=== PATIENT | male | born 1935 | race Caucasian/White ===

== ENCOUNTER 2017-07-13 13:06 | Emergency (ER) | payer MEDICARE, BC ==
--- NOTE | 2017-07-13 13:35 | ED PDOC ---
HPI: Back Time Seen by Provider: 07/13/17 13:23 Chief Complaint (Nursing): Back Pain Chief Complaint (Provider): Left lower back pain History Per: Patient History/Exam Limitations: no limitations Onset/Duration Of Symptoms: Days (3) Current Symptoms Are (Timing): Still Present Additional Complaint(s): Patient is an 82 y/o male with a past medical history of peptic ulcer disease presenting to the emergency department for left lower back and left hip pain x3 days with inability to ambulate secondary to pain. Reports receiving an injection three days ago with no improvement of symptoms. Denies weakness, paresthesia, or other complaints. PCP: Dr. Fernando Liu Past Medical History Reviewed: Historical Data, Nursing Documentation, Vital Signs Vital Signs: Last Vital Signs Temp 97.7 F 07/13/17 13:20 Pulse 99 H 07/13/17 13:20 Resp 16 07/13/17 13:20 BP 133/67 07/13/17 13:20 Pulse Ox 99 07/13/17 13:20 - Medical History PMH: Anemia, Diabetes (Insipidus), HTN Denies: HIV, Chronic Kidney Disease Other PMH: Peptic ulcer disease - Surgical History Surgical History: Endoscopy - Family History Family History: States: Unknown Family Hx - Social History Current smoker - smoking cessation education provided: No Ex-Smoker (has not smoked in the last 12 months): No Alcohol: None Drugs: Denies - Immunization History Hx Tetanus Toxoid Vaccination: No Hx Influenza Vaccination: No Hx Pneumococcal Vaccination: No - Home Medications Home Medications: Ambulatory Orders Medication Instructions Recorded Desmopressin [Ddavp] 0.1 mg PO BID 09/06/14 Methylprednisolone [Medrol Dose 4 mg PO DAILY #21 tab 07/13/17 Pack (21 tabs)] Zolpidem [Ambien] 10 mg PO HS 07/13/17 traMADol [Ultram] 50 mg PO Q8 #10 tab 07/13/17 - Allergies Allergies/Adverse Reactions: Allergies Allergy/AdvReac Type Severity Reaction Status Date / Time No Known Allergies Allergy Verified 09/06/14 07:53 Review of Systems ROS Statement: Except As Marked, All Systems Reviewed And Found Negative Constitutional: Negative for: Other (ability to ambulate) Musculoskeletal: Positive for: Back Pain (left lower back pain), Other (hip pain ) Neurological: Negative for: Weakness (or paresthesia) Physical Exam - Reviewed Nursing Documentation Reviewed: Yes Vital Signs Reviewed: Yes - Physical Exam Appears: Positive for: Well, Non-toxic, No Acute Distress Head Exam: Positive for: ATRAUMATIC, NORMAL INSPECTION, NORMOCEPHALIC Skin: Positive for: Normal Color, Warm, Dry Eye Exam: Positive for: Normal appearance Neck: Positive for: Normal, Painless ROM, Supple Cardiovascular/Chest: Positive for: Regular Rate, Rhythm. Negative for: Murmur Respiratory: Positive for: Normal Breath Sounds. Negative for: Accessory Muscle Use, Respiratory Distress Gastrointestinal/Abdominal: Positive for: Normal Exam, Soft. Negative for: Tenderness Back: Positive for: Other (left paraspinal tenderness). Negative for: Vertebral Tenderness Extremity: Positive for: Normal ROM. Negative for: Deformity Neurologic/Psych: Positive for: Oriented (x3). Negative for: Motor/Sensory Deficits Comments: Left hip tenderness - ECG O2 Sat by Pulse Oximetry: 99 (RA) Pulse Ox Interpretation: Normal - Progress Re-evaluation Time: 15:05 Condition: Improved Medical Decision Making Medical Decision Making: Time: 13:31 Initial impression: Left lower back pain and left hip pain Initial plan: Toradol Left Hip X-ray Lumber Spine X-ray Reevaluation 14:30 Left hip x-ray reviewed. L-spine x-ray reviewed. Scribe Attestation: Documented by Ita Farooq, acting as a scribe for Vazquez Agosto MD. Provider Scribe Attestation: All medical record entries made by the Scribe were at my direction and personally dictated by me. I have reviewed the chart and agree that the record accurately reflects my personal performance of the history, physical exam, medical decision making, and the department course for this patient. I have also personally directed, reviewed, and agree with the discharge instructions and disposition. Disposition - Clinical Impression Clinical Impression: Back pain, Osteoarthritis - Patient ED Disposition Is Patient to be Admitted: No Counseled Patient/Family Regarding: Studies Performed, Diagnosis, Need For Followup, Rx Given - Disposition Referrals: Rodney Ramey MD [Staff Provider] - Disposition: Routine/Home Disposition Time: 15:05 Condition: FAIR Prescriptions: Methylprednisolone [Medrol Dose Pack (21 tabs)] 4 mg PO DAILY #21 tab traMADol [Ultram] 50 mg PO Q8 #10 tab Instructions: Lumbar Radiculopathy (ED), Osteoarthritis (ED), Degenerative Disc Disease (ED) Forms: [email or web address] ([place]an) Print Language: ICELANDIC
[2017-07-13 15:46] VITALS: BP 128/76; PULSE 78; RESP 20; TEMP 97.6; O2SAT 98
--- NOTE | 2017-07-13 16:24 | RAD ---
PROCEDURE: Radiographs of the Lumbar Spine. HISTORY: trauma r/o fx COMPARISON: Comparison made with radiographs of the lumbar spine 01/09/[address] scan abdomen pelvis 07/27/2016 which also image the lumbar spine in 3 planes. FINDINGS: BONES: No evidence of acute compression fractures nor retropulsed fragments. Minor chronic anterior stature loss of the T12 segment unchanged. Remaining vertebral bodies otherwise exhibit normal stature. There is minimal levoscoliosis centered at the lower thoracic region. Vertebral bodies and facets otherwise exhibit normal alignment. . DISC SPACES: Significant multilevel degenerative spondylosis. Changes include varying degrees of disc space narrowing, endplate eburnation and large anterolateral as well as slightly smaller posterior osteophyte formation. Facets are hypertrophic L5-S1 through the L1-L2 levels in decreasing order of severity. OTHER FINDINGS: Vascular calcifications of the abdominal aorta and iliac arteries. IMPRESSION: No acute compression fractures no retropulsed fragments. Chronic anterior stature loss T12 segment unchanged. Significant multilevel degenerative spondylosis.
--- NOTE | 2017-07-13 16:38 | RAD ---
PROCEDURE: Pelvis left hip dated 07/13/2017 HISTORY: Pain. No trauma. COMPARISON: Comparison made with plain film radiographs of the pelvis 01/09/[address] scan abdomen pelvis 07/27/2016. FINDINGS: BONES: No definitive radiographic evidence of acute displaced fracture nor dislocation. Both femoral heads are appropriately located within the respective acetabula. JOINTS: Mild degenerative changes both hip joints with slight spurring of the superolateral margins of the acetabular roofs. SOFT TISSUES: Soft tissues appear grossly unremarkable. OTHER FINDINGS: None. IMPRESSION: No acute fracture seen. Mild DJD.
== END 2017-07-13 15:47 | disposition home or self-care (01) ==
LOC: H.ER 13:06
DX: M54.5 Low back pain (principal); E23.2 Diabetes insipidus; I10 Essential (primary) hypertension
CPT/HCPCS: 72110; 73502; 96372; 99283; J1885

== ENCOUNTER 2019-02-02 17:21 | Inpatient (IN) | payer MEDICARE, BC ==
[2019-02-02] MEDS ORDERED: Oxycodone/Acetaminophen 5/325 mg Tab PO STA (18:16)
[2019-02-02] MEDS ORDERED: Oxycodone/Acetaminophen 5/325 mg Tab ONE (18:21)
--- NOTE | 2019-02-02 18:27 | ED PDOC ---
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 Currently, he is just reporting having mid back pain which radiates down to his tailbone. He additionally reports that earlier this morning while sitting on his bed putting his socks on, he went to get up and fell forward on his knees also without any head injury or loss of consciousness. He says he is supposed to be using a cane, but was not using it during either fall. Patient states that he has been having this incoordination for about 2-3 weeks and does not know why, denying any associated dizziness, nausea, vomiting, and new pain to his legs. While he reports vision changes, he says this is not new and he is being seen for it by an ophthalm ologist and wears glasses. Of note, patient takes Endocet and MorphaBond (started last month) for his chronic back pain, but denies taking either medication yet today. PMD: Elvis Mclain Past Medical History Reviewed: Historical Data, Nursing Documentation, Vital Signs Vital Signs: Last Vital Signs Temp 98.6 F 02/02/19 17:23 Pulse 59 L 02/02/19 17:23 Resp 18 02/02/19 17:23 BP 143/75 02/02/19 17:23 Pulse Ox 99 02/02/19 17:23 - Medical History PMH: Anemia, Back Problems, Diabetes (Insipidus), HTN, Chronic Pain (back) Denies: HIV, Chronic Kidney Disease - Surgical History Surgical History: Endoscopy - Family History Family History: States: Unknown Family Hx - Social History Current smoker - smoking cessation education provided: No Alcohol: None Drugs: Denies - Immunization History Hx Tetanus Toxoid Vaccination: No Hx Influenza Vaccination: No Hx Pneumococcal Vaccination: No - Home Medications Home Medications: Ambulatory Orders Medication Instructions Recorded Desmopressin [Ddavp] 0.1 mg PO BID 09/06/14 Alprazolam [Xanax] 0.5 mg PO PRN PRN 02/02/19 Donepezil [Aricept] 10 mg PO DAILY 02/02/19 oxyCODONE/Acetaminophen [Percocet 1 tab PO PRN PRN 02/02/19 5/325 mg Tab] - Allergies Allergies/Adverse Reactions: Allergies Allergy/AdvReac Type Severity Reaction Status Date / Time No Known Allergies Allergy Verified 09/06/14 07:53 Review of Systems ROS Statement: Except As Marked, All Systems Reviewed And Found Negative Eyes: Positive for: Vision Change (but not new) Gastrointestinal: Negative for: Nausea, Vomiting Musculoskeletal: Positive for: Back Pain (mid back radiating down to tailbone) Neurological: Positive for: Incoordination. Negative for: Dizziness, Other (loss of consciousness) Physical Exam - Reviewed Nursing Documentation Reviewed: Yes (supraficial abrasions to mid back from fall) Vital Signs Reviewed: Yes - Physical Exam Appears: Positive for: No Acute Distress Head Exam: Positive for: ATRAUMATIC, NORMAL INSPECTION, NORMOCEPHALIC Skin: Positive for: Normal Color, Warm, Dry Eye Exam: Positive for: Normal appearance Neck: Positive for: Normal, Painless ROM, Supple Cardiovascular/Chest: Positive for: Regular Rate, Rhythm Respiratory: Positive for: Normal Breath Sounds. Negative for: Respiratory Distress Pulses-Dorsalis Pedis (L): 2+ Pulses-Dorsalis Pedis (R): 2+ Gastrointestinal/Abdominal: Positive for: Normal Exam, Soft. Negative for: Tenderness Back: Positive for: Other (point tenderness to mid thoracic and lumbar spine) Extremity: Positive for: Other (abrasion noted to right knee (from fall this morning as per pt); pelvis stable). Negative for: Tenderness (to entire bilateral lower extremities), Swelling (to entire bilateral lower extremities) Neurological/Psych: Positive for: Symmetric/Intact Strength (upper/lower extremities bilaterally) - Laboratory Results Result Diagrams: 02/02/19 18:29 02/02/19 20:59 - ECG O2 Sat by Pulse Oximetry: 99 (RA) Pulse Ox Interpretation: Normal Medical Decision Making Medical Decision Making: Time: 1814 Initial Impression: back pain s/p fall, incoordination Initial Plan: --CT head without contrast --CT lumbar spine w/o contrast --CT thoracic spine w/o contrast --CMP --CBC with differential --Magnesium levels --Percocet 1 tab PO --Accucheck --Reevaluation [address] Savage who agrees with plan. 1849 Accucheck: 86 2044 Lab called and notified someone in ED that blood specimen was hemolyzed and needed to be redrawn, but information was never relayed to BUDDY Tatum or myself until now. Upon reevaluation of patient, he has continued 8/10 pain. Morphine 4mg Iv ordered to be administered by RN. 2052 CT Lumbar Spine FINDINGS: ALIGNMENT: Bony alignment is anatomic. DISCS/DEGENERATIVE CHANGES: T12/L1: No significant central canal or neural foraminal stenosis. Bilateral mild apophyseal facet arthropathy noted. L1/L2: No significant central canal or neural foraminal stenosis. Bilateral moderate apophyseal facet arthropathy noted. L2/L3: No significant central canal or neural foraminal stenosis. Bilateral moderate apophyseal facet arthropathy. L3/4: There is marked central canal and bilateral neural foraminal stenosis. Bilateral hypertrophic apophyseal facet arthropathy. L4/5: There is marked central canal and bilateral neural foraminal stenosis. Bilateral hypertrophic apophyseal facet arthropathy. L5/S1: No significant central canal or neural foraminal stenosis. Bilateral hypertrophic apophyseal facet arthropathy. BONES: No acute fracture or aggressive appearing osseous lesion. In the central superio r endplate of L5, there is identified an extrinsic compression defect thought compatible with Schmorl's node herniation. Extensive osteophytic spurring/bridging is present throughout the lumbar spine. There is evidence of advanced degenerative disc disease at L2-3 and L3-4. SOFT TISSUES: The soft tissues are unremarkable. MISCELLANEOUS: Moderate atherosclerotic vascular plaquing is present. IMPRESSION: 1. No acute lumbar spine abnormality. 2. Bilateral apophyseal facet arthropathy at all levels which is hypertrophic at L3-4, L4-5, L5-S1. 3. Marked central spinal canal stenosis and bilateral neural foramen stenosis at L3-4 and L4-5. 4. Evidence of advanced degenerative disc disease at L2-3 and L3-4. 5. 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 2113 CT Thoracic Spine FINDINGS: BONES: No acute fracture or aggressive appearing osseous lesion. Multilevel degenerative disc disease is seen in the mid-lower cervical spine. Ankylosing spondylitis is noted throughout the thoracic spine. ALIGNMENT: The coronal reconstructed images demonstrate mild dextroscoliotic curvature with the apex at T5. DEGENERATIVE CHANGES: No significant central canal or neural foraminal stenosis. SOFT TISSUES: The soft tissues are unremarkable. IMPRESSION: 1. No acute thoracic spine abnormality. 2. Multilevel degenerative disc disease noted in the mid-to lower cervical spine. 3. Ankylosing spondylitis throughout the thoracic spine. 4. Slight dextroscoliotic curvature of the thoracic spine. [address] Jovel and states that patient is be admitted for multiple falls and intractable back pain. Admitting bridge orders entered and case discussed with Dr. Savage who is agreeable with plan and treatment. Patient is to be moved to a room in the main for obs/tele. -- Scribe Attestation: Documented by Montserrat Arnett, acting as a scribe for Claudia Noel NP. Provider Scribe Attestation: All medical record entries made by the Scribe were at my direction and personally dictated by me. I have reviewed the chart and agree that the record accurately reflects my personal performance of the history, physical exam, medical decision making, and the department course for this patient. I have also personally directed, reviewed, and agree with the discharge instructions and disposition. Disposition - Clinical Impression Clinical Impression: Intractable back pain, Multiple falls - Patient ED Disposition Is Patient to be Admitted: No - Disposition Disposition Time: 22:00 Condition: STABLE - Pt Status Changed To: Hospital Disposition Of: Observation - POA Present On Arrival: Falls Or Trauma
[2019-02-02 18:45] LABS: BASO % 0.7 % (0.0-2.0); EOS # 0.1 K/uL (0.0-0.7); EOS % 1.1 % (0.0-4.0); HEMOGLOBIN 13.9 g/dL (12.0-18.0); LYMPH # 0.9 K/uL (1.0-4.3); LYMPH % 14.1 % (20.0-40.0); MEAN CELL VOLUME 89.6 fl (80.0-94.0); MEAN CORPUSCULAR HEMOGLOBIN 30.5 pg (27.0-31.0); MEAN CORPUSCULAR HGB CONC 34.1 g/dL (33.0-37.0); MEAN PLATELET VOLUME 7.8 fl (7.2-11.7); MONO # 0.6 K/uL (0.0-0.8); MONO % 9.5 % (0.0-10.0); NEUT # 4.6 K/uL (1.8-7.0); NEUT % 74.6 % (50.0-75.0); NRBC % 0.1 % (0.0-0.0); RBC 4.54 Mil/uL (4.40-5.90); RED CELL DISTRIBUTION WIDTH 12.9 % (11.5-14.5); WHITE BLOOD COUNT 6.2 K/uL (4.8-10.8)
[2019-02-02] MEDS ORDERED: Morphine 5 MG/ML SYRINGE IM STA (20:41)
[2019-02-02] MEDS ORDERED: Morphine 4 MG/ML VIAL ONE (20:57)
[2019-02-02 21:18] LABS: BLOOD UREA NITROGEN 12 mg/dl (9-20); CALCIUM 8.8 mg/dL (8.4-10.2); GFR NON-AFRICAN AMERICAN > 60
[2019-02-02 21:19] LABS: ALB/GLOB RATIO 1.2 (1.0-2.1); ALBUMIN 3.9 g/dL (3.5-5.0); ALT/SGPT 27 U/L (21-72); AST/SGOT 41 U/L (17-59)
[2019-02-02] MEDS ORDERED: Oxycodone/Acetaminophen 5/325 mg Tab PO PRN (21:55)
[2019-02-02] MEDS ORDERED: HYDROmorphone 1 mg/ml ISec IVP PRN (23:49)
[2019-02-03] MEDS: DESMOPRESSIN 0.1 MG PO SCH ×3 (00:25→21:40)
--- NOTE | 2019-02-03 08:22 | CARD ---
APPROVED REPORT Date of service: 02/02/2019 EKG Measurement Heart [id number] <Conclusion> Normal sinus rhythm with sinus arrhythmia Voltage criteria for left ventricular hypertrophy Abnormal ECG
--- NOTE | 2019-02-03 08:28 | CT ---
Date of service: 02/02/2019 PROCEDURE: CT HEAD WITHOUT CONTRAST. HISTORY: frequent falls COMPARISON: 07/27/2016 TECHNIQUE: Axial computed tomography images were obtained through the head/brain without intravenous contrast. Radiation dose: Total exam DLP = 1291.91 mGy-cm. This CT exam was performed using one or more of the following dose reduction techniques: Automated exposure control, adjustment of the mA and/or kV according to patient size, and/or use of iterative reconstruction technique. FINDINGS: HEMORRHAGE: No intracranial hemorrhage. BRAIN: No mass effect or edema. Cerebral atrophy and bilateral periventricular and deep white matter hypodensities compatible with microvascular ischemic changes-findings are stable in appearance VENTRICLES: Bilateral prominence commensurate with the degree of atrophy. CALVARIUM: Unremarkable. PARANASAL SINUSES: Prior paranasal sinus inflammatory changes have progressed ethmoid and sphenoid sinuses most notably affected. MASTOID AIR CELLS: Unremarkable as visualized. No inflammatory changes. OTHER FINDINGS: None. IMPRESSION: Cerebral atrophy and microvascular ischemic changes stable since 2016. No interval hemorrhage or mass effect no intracerebral or extra axial interval pathology noted. Interval progressive sinusitis-ethmoid and sphenoid sinuses most notably now affected. Concordant results (preliminary interpretation) provided by [facility].
[2019-02-03 11:07] LABS: BLOOD UREA NITROGEN 12 mg/dl (9-20); CALCIUM 8.9 mg/dL (8.4-10.2); GFR NON-AFRICAN AMERICAN > 60
[2019-02-03] MEDS: Oxycodone/Acetaminophen 5/325 mg Tab PO PRN ×2 (11:27→19:32)
--- NOTE | 2019-02-03 12:49 | CT ---
Date of service: 02/02/2019 PROCEDURE: CT Thoracic Spine without contrast HISTORY: fall COMPARISON: None available TECHNIQUE: Axial computed tomography images were obtained of the thoracic spine without intravenous contrast. Coronal and sagittal reformatted images were created and reviewed. Radiation dose: Total exam DLP = 869.87 mGy-cm. This CT exam was performed using one or more of the following dose reduction techniques: Automated exposure control, adjustment of the mA and/or kV according to patient size, and/or use of iterative reconstruction technique. 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 There is scarring of the thoracic vertebral bodies. There is heterogeneous extensive demineralization. There is a minimally displaced fracture through the T12 vertebral body, somewhat obliquely. The posterior elements appear intact. This creates a pseudoarticulation at the T12 level.. There is no other fracture identified. The heights of the vertebral bodies are maintained. Normal alignment is maintained. DISCS/SPINAL CANAL/NEURAL FORAMINA: There is narrowing of multiple intervertebral disc spaces of the lower thoracic spine consistent with degenerative disc disease.. PARASPINAL SOFT TISSUES: There is mild paraspinous hemorrhage noted about the T12 vertebra. There is no evidence of epidural hematoma.. OTHER FINDINGS: Unremarkable. IMPRESSION: Findings suggestive of ankylosing spondylitis with oblique fracture through the T12 vertebra resulting in a pseudoarticulation. The fracture is acute to subacute with some paraspinous hemorrhage. No other fracture identified. Posterior elements are intact at the T12 level. The preliminary findings for this examination were reported by [facility] at 9:14 p.m. on 02/02/2019. There is discordance of this report with the preliminary findings. T12 vertebral body fracture was not described in the preliminary report of this examination. These findings were described by telephone to the emergency physician, , at 12:15 p.m. on 02/03/2019.
--- NOTE | 2019-02-03 13:42 | CT ---
Date of service: 02/02/2019 PROCEDURE: CT Lumbar Spine without contrast HISTORY: fall COMPARISON: None available. TECHNIQUE: Axial computed tomography images were obtained of the lumbar spine without the use of intravenous contrast. Coronal and sagittal reformatted images were created and reviewed. Radiation dose: Total exam DLP = 1193.39 mGy-cm. This CT exam was performed using one or more of the following dose reduction techniques: Automated exposure control, adjustment of the mA and/or kV according to patient size, and/or use of iterative reconstruction technique. FINDINGS: VERTEBRAE: There is an oblique fracture through the T12 vertebral body. See the report of thoracic spine of the same date. The heights of the lumbar vertebral bodies are maintained. There is a Schmorl's node in the superior L5 vertebral endplate. There is grade 1 retrolisthesis at L2-3. Normal alignment is maintained elsewhere. There is diffuse demineralization. DISCS/SPINAL CANAL/NEURAL FORAMINA: L1-2: Unremarkable. L2-3: Loss in height of the intervertebral disc space. Osteophytes are seen about the disc space posteriorly. There is bilateral facet hypertrophy and ligamentum flavum hypertrophy. There is mild central spinal stenosis. L3-4: There is loss in height of the intervertebral disc space. There is severe bilateral facet hypertrophy resulting in severe central spinal stenosis. There is moderate to severe bilateral neural foraminal stenosis. L4-5: There is loss in height of the intervertebral disc space with posterior osteophytes. There is extensive degenerative facet hypertrophy. There is severe central spinal stenosis. There is severe bilateral neural foraminal stenosis. L5-S1: There is preservation in height of the intervertebral disc space. There is mild degenerative facet arthropathy and ligamentum flavum hypertrophy. Mild central spinal stenosis. PARASPINAL SOFT TISSUES: There is paraspinous hemorrhage noted anteriorly at the T12 vertebral level. There is no evidence of epidural hematoma. OTHER FINDINGS: None. IMPRESSION: Fracture of T12 vertebral body. See report of thoracic spine CT of the same date. 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 No lumbar spinous fracture appreciated. The preliminary findings for this examination were reported by [facility] at 8:53 p.m. on 02/02/2019. There is concurrence of this report with the preliminary findings.
--- NOTE | 2019-02-03 14:44 | CP.PCM.CON ---
History of Present Illness - History of Present Illness History of Present Illness: Neurosurgery consult: Dr. Tim CARROLL interpreton #[id number] used Patient is an 83 y/o male who is admitted following a fall, no c/o mid back pain. The patient reoorts falling onto his back while trying to open his car door yesterday. He experienced severe mid back pain at the time and was brought to [facility] for evaluation. It was determined that the patient had suffered a T12 vertebral body fracture on CT. The patient has had chronic LB pain for many years with LLE radiating pain and paresthesias. As a result, he has had multi ple falls in the past. He reports that 9 years ago, he suffered a fall and was taken to [facility] where he describes lumbar spine spine surgery was performed, however, he can not provide details of the surgery. Currently, his pain is dull, intermittent and located at his mid back. The pain is worse with walking, and prolonged sitting. The pain is alleviated with lying down. He admits to worsened LLE radiating pain and paresthesias. He denies bowel/bladder dysfunction and saddle paresthesias. He denies CP/SOB/N/V/D/fever/melena/dysuria. PMH: Diabetis insipidus PSH: lumbar surgery meds: as per med rec allergy NKDA SH: denies tobacco/ETOH/drug use Review of Systems - Review of Systems All systems: reviewed and no additional remarkable complaints except Review of Systems: as per HPI Past Patient History - Infectious Disease Hx of Infectious Diseases: None - Tetanus Immunizations Tetanus Immunization: Unknown - Past Medical History & Family History Past Medical History?: Yes Past Family History: Reviewed and not pertinent - Past Social History Alcohol: None Drugs: Denies - CARDIAC Hx Hypertension: Yes - PULMONARY Hx Respiratory Disorders: No - NEUROLOGICAL Hx Neurological Disorder: No - HEENT Hx HEENT Problems: Yes Hx Cataracts: Yes (bilateral) - RENAL Hx Chronic Kidney Disease: No - ENDOCRINE/METABOLIC Hx Endocrine Disorders: Yes Hx Diabetes Insipidus: Yes - HEMATOLOGICAL/ONCOLOGICAL Hx Anemia: Yes Hx Human Immunodeficiency Virus (HIV): No - INTEGUMENTARY Hx Dermatological Problems: No - MUSCULOSKELETAL/RHEUMATOLOGICAL Hx Musculoskeletal Disorders: Yes Hx Back Pain: Yes Hx Falls: Yes Hx Herniated Disk: Yes - GASTROINTESTINAL Hx Gastrointestinal Disorders: Yes Hx Ulcer: Yes - GENITOURINARY/GYNECOLOGICAL Hx Genitourinary Disorders: No - PSYCHIATRIC Hx Psychophysiologic Disorder: Yes Hx Anxiety: Yes Hx Substance Use: No - SURGICAL HISTORY Hx Surgeries: Yes Hx Cataract Extraction: Yes - ANESTHESIA Hx Anesthesia: Yes Hx Anesthesia Reactions: No Hx Malignant Hyperthermia: No Meds Allergies/Adverse Reactions: Allergies Allergy/AdvReac Type Severity Reaction Status Date / Time No Known Allergies Allergy Verified 09/06/14 07:53 - Medications Medications: Current Medications Alprazolam (Xanax) 0.5 mg PO BID PRN PRN Reason: Anxiety Last Admin: 02/03/19 00:25 Dose: 0.5 mg Donepezil HCl (Aricept) 10 mg PO DAILY [facility] Last Admin: 02/03/19 09:21 Dose: 10 mg Enoxaparin Sodium (Lovenox) 40 mg SC DAILY [facility]; Protocol Home Med (Desmopressin [Ddavp]) 0.1 mg PO Q12 [facility] Last Admin: 02/03/19 09:21 Dose: 0.1 mg Hydromorphone HCl (Dilaudid) 1 mg IVP Q4 PRN PRN Reason: Pain, severe (8-10) Oxycodone/Acetaminophen (Percocet 5/325 Mg Tab) 1 tab PO Q4 PRN PRN Reason: Pain, moderate (4-7) Stop: 02/06/19 01:01 Last Admin: 02/03/19 11:27 Dose: 1 tab Physical Exam - Constitutional Appears: Well, No Acute Distress - Head Exam Head Exam: ATRAUMATIC, NORMOCEPHALIC - Eye Exam Eye Exam: EOMI, Normal appearance - ENT Exam ENT Exam: Mucous Membranes Moist - Neck Exam Neck exam: Positive for: Normal Inspection - Respiratory Exam Respiratory Exam: NORMAL BREATHING PATTERN - Back Exam Additional comments: Midline tenderness from T12 to L5 diffuse lumbar paraspinal tenderness bilaterally old midline lumbar scar well healed no masses/erythema sensation intact SP/DP/TN motor intact EHL/FHL/TA/G + SLR LLE neg clonus - Neurological Exam Neurological exam: Alert, CN II-XII Intact, Oriented x3 - Psychiatric Exam Psychiatric exam: Normal Affect, Normal Mood - Skin Skin Exam: Normal Color, Warm Results - Vital Signs Recent Vital Signs: Last Vital Signs Temp 98.2 F 02/03/19 11:43 Pulse 68 02/03/19 11:43 Resp 18 02/03/19 11:43 BP 113/69 02/03/19 11:43 Pulse Ox 95 02/03/19 11:43 - Labs Result Diagrams: 02/02/19 18:29 02/03/19 09:45 Labs: Laboratory Results - last 24 hr 02/02/19 02/02/19 02/02/19 18:29 18:49 20:59 WBC 6.2 RBC 4.54 Hgb 13.9 Hct 40.7 MCV 89.6 D MCH 30.5 MCHC 34.1 RDW 12.9 Plt Count 167 MPV 7.8 Neut % (Auto) 74.6 Lymph % (Auto) 14.1 L [place] % (Auto) 9.5 Eos % (Auto) 1.1 Baso % (Auto) 0.7 Neut # (Auto) 4.6 Lymph # (Auto) 0.9 L [place] # (Auto) 0.6 Eos # (Auto) 0.1 Baso # (Auto) 0.0 Sodium 131 L Potassium 4.3 Chloride 96 L Carbon Dioxide 25 Anion Gap 14 BUN 12 Creatinine 0.7 L Est GFR ( Amer) > 60 Est GFR (Non-Af Amer) > 60 POC Glucose (mg/dL) 86 Random Glucose 100 Calcium 8.8 Total Bilirubin 1.1 AST 41 ALT 27 Alkaline Phosphatase 130 H Troponin I Total Protein 7.2 Albumin 3.9 Globulin 3.3 Albumin/Globulin Ratio 1.2 02/02/19 02/03/19 20:59 09:45 WBC RBC Hgb Hct MCV MCH MCHC RDW Plt Count MPV Neut % (Auto) Lymph % (Auto) [place] % (Auto) Eos % (Auto) Baso % (Auto) Neut # (Auto) Lymph # (Auto) [place] # (Auto) Eos # (Auto) Baso # (Auto) Sodium 130 L Potassium 4.0 Chloride 95 L Carbon Dioxide 24 Anion Gap 15 BUN 12 Creatinine 0.6 L Est GFR ( Amer) > 60 Est GFR (Non-Af Amer) > 60 POC Glucose (mg/dL) Random Glucose 131 H Calcium 8.9 Total Bilirubin AST ALT Alkaline Phosphatase Troponin I 0.0150 Total Protein Albumin Globulin Albumin/Globulin Ratio - Impressions Impression: Accession No. : [id number] Patient Name / ID : PARDEEP Cristobal / [id number] Exam Date : 02/02/2019 19:21:57 ( Approved ) Study Comment : Sex / Age : M / 83Y Creator : tameka love Dictator : Jasper Fernandez MD Milk Hauler : Load Checker : Jasper Fernandez MD Approver2 : Report Date : 02/02/2019 21:27:07 My Comment : Date of service: 02/02/2019 PROCEDURE: CT Thoracic Spine without contrast HISTORY: fall COMPARISON: None available TECHNIQUE: Axial computed tomography images were obtained of the thoracic spine without intravenous contrast. Coronal and sagittal reformatted images were created and reviewed. Radiation dose: Total exam DLP = 869.87 mGy-cm. This CT exam was performed using one or more of the following dose reduction techniques: Automated exposure control, adjustment of the mA and/or kV according to patient size, and/or use of iterative reconstruction technique. 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 There is scarring of the thoracic vertebral bodies. There is heterogeneous extensive demineralization. There is a minimally displaced fracture through the T12 vertebral body, somewhat obliquely. The posterior elements appear intact. This creates a pseudoarticulation at the T12 level.. There is no other fracture identified. The heights of the vertebral bodies are maintained. Normal alignment is maintained. DISCS/SPINAL CANAL/NEURAL FORAMINA: There is narrowing of multiple intervertebral disc spaces of the lower thoracic spine consistent with degenerative disc disease.. PARASPINAL SOFT TISSUES: There is mild paraspinous hemorrhage noted about the T12 vertebra. There is no evidence of epidural hematoma.. OTHER FINDINGS: Unremarkable. IMPRESSION: Findings suggestive of ankylosing spondylitis with oblique fracture through the T12 vertebra resulting in a pseudoarticulation. The fracture is acute to subacute with some paraspinous hemorrhage. No other fracture identified. Posterior elements are intact at the T12 level. The preliminary findings for this examination were reported by [facility] at 9:14 p.m. on 02/02/2019. There is discordance of this report with the preliminary findings. T12 vertebral body fracture was not described in the preliminary report of this examination. These findings were described by telephone to the emergency physician, , at 12:15 p.m. on 02/03/2019. Accession No. : [id number] Patient Name / ID : PARDEEP Cristobal / [id number] Exam Date : 02/02/2019 19:25:38 ( Approved ) Study Comment : Sex / Age : M / 83Y Creator : tameka love Dictator : Jasper Fernandez MD Milk Hauler : Load Checker : Jasper Fernandez MD Approver2 : Report Date : 02/02/2019 21:27:07 My Comment : Date of service: 02/02/2019 PROCEDURE: CT Lumbar Spine without contrast HISTORY: fall COMPARISON: None available. TECHNIQUE: Axial computed tomography images were obtained of the lumbar spine without the use of intravenous contrast. Coronal and sagittal reformatted images were created and reviewed. Radiation dose: Total exam DLP = 1193.39 mGy-cm. This CT exam was performed using one or more of the following dose reduction techniques: Automated exposure control, adjustment of the mA and/or kV according to patient size, and/or use of iterative reconstruction technique. FINDINGS: VERTEBRAE: There is an oblique fracture through the T12 vertebral body. See the report of thoracic spine of the same date. The heights of the lumbar vertebral bodies are maintained. There is a Schmorl's node in the superior L5 vertebral endplate. There is grade 1 retrolisthesis at L2-3. Normal alignment is maintained elsewhere. There is diffuse demineralization. DISCS/SPINAL CANAL/NEURAL FORAMINA: L1-2: Unremarkable. L2-3: Loss in height of the intervertebral disc space. Osteophytes are seen about the disc space posteriorly. There is bilateral facet hypertrophy and ligamentum flavum hypertrophy. There is mild central spinal stenosis. L3-4: There is loss in height of the intervertebral disc space. There is severe bilateral facet hypertrophy resulting in severe central spinal stenosis. There is moderate to severe bilateral neural foraminal stenosis. L4-5: There is loss in height of the intervertebral disc space with posterior osteophytes. There is extensive degenerative facet hypertrophy. There is severe central spinal stenosis. There is severe bilateral neural foraminal stenosis. L5-S1: There is preservation in height of the intervertebral disc space. There is mild degenerative facet arthropathy and ligamentum flavum hypertrophy. Mild central spinal stenosis. PARASPINAL SOFT TISSUES: There is paraspinous hemorrhage noted anteriorly at the T12 vertebral level. There is no evidence of epidural hematoma. OTHER FINDINGS: None. IMPRESSION: Fracture of T12 vertebral body. See report of thoracic spine CT of the same date. 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 No lumbar spinous fracture appreciated. The preliminary findings for this examination were reported by [facility] Radiology at 8:53 p.m. on 02/02/2019. There is concurrence of this report with the preliminary findings. Assessment & Plan (1) T12 vertebral fracture Assessment and Plan: Dr. Dumont recommends conservative management with TLSO brace No acute surgical intervention needed at this time PT/OT WBAT pain control as per medicine DVT ppx above d/w Dr. Dumont in agreement Status: Acute - Date & Time Date: 02/03/19 Time: 14:30
[2019-02-03 15:52] LABS: HEMOGLOBIN 13.6 g/dL (12.0-18.0); MEAN CELL VOLUME 89.2 fl (80.0-94.0); MEAN CORPUSCULAR HEMOGLOBIN 30.7 pg (27.0-31.0); MEAN CORPUSCULAR HGB CONC 34.4 g/dL (33.0-37.0); RBC 4.44 Mil/uL (4.40-5.90); RED CELL DISTRIBUTION WIDTH 13.3 % (11.5-14.5); WHITE BLOOD COUNT 7.5 K/uL (4.8-10.8)
[2019-02-03 16:03] LABS: BLOOD UREA NITROGEN 13 mg/dl (9-20); GFR NON-AFRICAN AMERICAN > 60
[2019-02-03] MEDS: HYDROmorphone 0.5 mg/0.5 ml ISec IVP PRN (16:59)
--- NOTE | 2019-02-03 20:08 | CARD ---
APPROVED REPORT Date of service: 02/03/2019 EXAM: Two-dimensional and M-mode echocardiogram with Doppler and color Doppler. Other Information Quality : GoodRhythm : NSR INDICATION Abnormal EKG/Arrhythmia Syncope Multiple Falls 2D DIMENSIONS IVSd0.99 (0.7-1.1cm)LVDd4.67 (3.9-5.9cm) LVOT Diameter2.36 (1.8-2.4cm)PWd0.97 (0.7-1.1cm) IVSs1.04 (0.8-1.2cm)LVDs4.21 (2.5-4.0cm) FS (%) 9.9 %PWs1.06 (0.8-1.2cm) M-Mode DIMENSIONS Left Atrium (MM)6.76 (2.5-4.0cm)IVSd0.74 (0.7-1.1cm) Aortic Root4.41 (2.2-3.7cm)LVDd6.80 (4.0-5.6cm) Aortic Cusp Exc.1.73 (1.5-2.0cm)PWd0.96 (0.7-1.1cm) IVSs0.74 cmFS (%) 31 % LVDs4.67 (2.0-3.8cm)PWs1.18 cm Aortic Valve AoV Peak Gthfdvjf902.0cm/sAoV VTI32.0cmAO Peak GR.8mmHg LVOT Peak Dfwaqjtu68.5cm/sLVOT VTI15.89cmAO Mean GR.5mmHg SARAVANAN (VMAX)1.28bu1CTU (VTI)1.07cm2 Mitral Valve MV E Bniswysz281.4cm/sMV DECEL ZHIZ496vgXI A Jyiobccw021.8cm/s MV XAD37efE/A ratio1.0MVA (PHT)2.22cm2 TDI Lateral E' Peak V6.11cm/sMedial E' Peak V6.52cm/sE/Lateral E'18.1 E/Medial E'16.9 LEFT VENTRICLE The left ventricle is normal size. There is normal left ventricular wall thickness. The left ventricular systolic function is normal. The estimated ejection fraction is 55-60% No regional wall motion abnormalities noted.. Transmitral Doppler flow pattern is Grade I-abnormal relaxation pattern. No left ventricle thrombus noted on this study. There is no ventricular septal defect visualized. There is no left ventricular aneurysm. There is no mass noted in the left ventricle. RIGHT VENTRICLE The right ventricle is normal size. There is normal right ventricular wall thickness. The right ventricular systolic function is normal. ATRIA The left atrium is moderately dilated. The right atrium size is normal. The interatrial septum is intact with no evidence for an atrial septal defect. AORTIC VALVE The aortic valve is normal in structure. Mild aortic regurgitation is present. There is no aortic valvular stenosis. There is no aortic valvular vegetation. MITRAL VALVE The mitral valve is normal in structure. There is no evidence of mitral valve prolapse. There is no mitral valve stenosis. There is mild mitral valve regurgitation noted. TRICUSPID VALVE The tricuspid valve is normal in structure. There is trace tricuspid valve regurgitation noted. There is no tricuspid valve prolapse or vegetation. There is no tricuspid valve stenosis. PULMONIC VALVE The pulmonary valve is normal in structure. There is no pulmonic valvular regurgitation. There is no pulmonic valvular stenosis. GREAT VESSELS The aortic root is mildly dilated in size ( 4.2 cm). The ascending aorta is normal in size. The pulmonary artery is normal. The IVC is normal in size and collapses >50% with inspiration. PERICARDIAL EFFUSION There is no pericardial effusion. There is no pleural effusion. <Conclusion> The estimated ejection fraction is 55-60% Transmitral Doppler flow pattern is Grade I-abnormal relaxation pattern. The left atrium is moderately dilated. Mild aortic regurgitation is present. There is mild mitral valve regurgitation noted. There is trace tricuspid valve regurgitation noted. The aortic root is mildly dilated in size ( 4.2 cm).
[2019-02-03 23:54] VITALS: BMI 29.8
[2019-02-04] MEDS: HYDROmorphone 0.5 mg/0.5 ml ISec IVP PRN ×2 (00:27→13:54)
[2019-02-04 05:34] LABS: BASO % 0.1 % (0.0-2.0); EOS % 0.1 % (0.0-4.0); LYMPH # 0.6 K/uL (1.0-4.3); LYMPH % 7.3 % (20.0-40.0); MEAN CORPUSCULAR HEMOGLOBIN 30.8 pg (27.0-31.0); MEAN CORPUSCULAR HGB CONC 34.6 g/dL (33.0-37.0); MEAN PLATELET VOLUME 7.6 fl (7.2-11.7); MONO # 0.9 K/uL (0.0-0.8); MONO % 10.5 % (0.0-10.0); NEUT # 6.9 K/uL (1.8-7.0); NRBC % 0.1 % (0.0-0.0); RBC 4.23 Mil/uL (4.40-5.90); RED CELL DISTRIBUTION WIDTH 13.3 % (11.5-14.5); WHITE BLOOD COUNT 8.3 K/uL (4.8-10.8)
[2019-02-04 05:47] LABS: PLATELET COUNT 127 K/uL (130-400)
[2019-02-04 05:54] LABS: ALB/GLOB RATIO 1.2 (1.0-2.1); ALBUMIN 3.8 g/dL (3.5-5.0); ALT/SGPT 35 U/L (21-72); AST/SGOT 38 U/L (17-59); BLOOD UREA NITROGEN 14 mg/dl (9-20); CALCIUM 8.7 mg/dL (8.4-10.2); GFR NON-AFRICAN AMERICAN > 60
[2019-02-04] MEDS: Enoxaparin 40 mg Syringe SC SCH (06:04)
[2019-02-04 08:44] LABS: LYMPHOCYTE 10 % (20-50); MONOCYTE 6 % (0-10); NEUTROPHIL 82 % (42-75); PLATELET ESTIMATE SLIGHTLY DECREASED (NORMAL); REACTIVE LYMPHOCYTES 2 % (0-0); TOTAL CELLS COUNTED 100
[2019-02-04] MEDS: DESMOPRESSIN 0.1 MG PO SCH ×2 (08:53→21:03)
[2019-02-04] MEDS: Oxycodone/Acetaminophen 5/325 mg Tab PO PRN ×3 (08:57→23:28)
--- NOTE | 2019-02-04 09:41 | CP.PCM.PN ---
Subjective - Date & Time of Evaluation Date of Evaluation: 02/04/19 Time of Evaluation: 08:30 - Subjective Subjective: Patient seen and examined at bedside. Agitated, with moderate pain to mid back. Agitated overnight, xanax and haldol given. Awaiting TLSO brace. Objective - Vital Signs/Intake and Output Vital Signs (last 24 hours): Temp Pulse Resp BP Pulse Ox 98.1 F 78 18 163/75 H 95 02/04/19 07:48 02/04/19 07:48 02/04/19 07:48 02/04/19 07:48 02/04/19 07:48 - Medications Medications: Current Medications Alprazolam (Xanax) 0.5 mg PO BID PRN PRN Reason: Anxiety Last Admin: 02/03/19 21:40 Dose: 0.5 mg Donepezil HCl (Aricept) 10 mg PO DAILY [facility] Last Admin: 02/04/19 08:53 Dose: 10 mg Enoxaparin Sodium (Lovenox) 40 mg SC DAILY [facility]; Protocol Last Admin: 02/04/19 06:04 Dose: 40 mg Home Med (Desmopressin [Ddavp]) 0.1 mg PO Q12 [facility] Last Admin: 02/04/19 08:53 Dose: 0.1 mg Hydromorphone HCl (Dilaudid) 1 mg IVP Q4 PRN PRN Reason: Pain, severe (8-10) Last Admin: 02/04/19 00:27 Dose: 1 mg Oxycodone/Acetaminophen (Percocet 5/325 Mg Tab) 1 tab PO Q4 PRN PRN Reason: Pain, moderate (4-7) Stop: 02/06/19 01:01 Last Admin: 02/04/19 08:57 Dose: 1 tab - Labs Labs: 02/04/19 04:40 02/04/19 04:40 - Back Exam Additional comments: Midline tenderness from T12 to L5 diffuse lumbar paraspinal tenderness bilaterally old midline lumbar scar well healed no masses/erythema sensation intact SP/DP/TN motor intact EHL/FHL/TA/G neg clonus Assessment and Plan (1) T12 vertebral fracture Assessment & Plan: -conservative management -pain control -awaiting TLSO brace -bedrest, hold PT until brace obtained -above d/w Dr. Dumont in agreement Status: Acute
--- NOTE | 2019-02-04 11:17 | CP.PCM.CON ---
History of Present Illness - History of Present Illness History of Present Illness: 83yM with hx of acute on chronic pain, ankylosing spondylitis, T12 compression fx has back pain, VAS 5/10, in the back with minimal radiation. Patient denies hx of inciting event. Pain is better with medication and rest and worse with movement. Dr Dumont on consult and will approach t12 fracture with converservative management and bracing with TLSO. Past Patient History - Infectious Disease Hx of Infectious Diseases: None - Tetanus Immunizations Tetanus Immunization: Unknown - Past Medical History & Family History Past Medical History?: Yes Past Family History: Reviewed and not pertinent - Past Social History Alcohol: None Drugs: Denies - CARDIAC Hx Hypertension: Yes - PULMONARY Hx Respiratory Disorders: No - NEUROLOGICAL Hx Neurological Disorder: No - HEENT Hx HEENT Problems: Yes Hx Cataracts: Yes (bilateral) - RENAL Hx Chronic Kidney Disease: No - ENDOCRINE/METABOLIC Hx Endocrine Disorders: Yes Hx Diabetes Insipidus: Yes - HEMATOLOGICAL/ONCOLOGICAL Hx Anemia: Yes Hx Human Immunodeficiency Virus (HIV): No - INTEGUMENTARY Hx Dermatological Problems: No - MUSCULOSKELETAL/RHEUMATOLOGICAL Hx Musculoskeletal Disorders: Yes Hx Back Pain: Yes Hx Falls: Yes Hx Herniated Disk: Yes - GASTROINTESTINAL Hx Gastrointestinal Disorders: Yes Hx Ulcer: Yes - GENITOURINARY/GYNECOLOGICAL Hx Genitourinary Disorders: No - PSYCHIATRIC Hx Psychophysiologic Disorder: Yes Hx Anxiety: Yes Hx Substance Use: No - SURGICAL HISTORY Hx Surgeries: Yes Hx Cataract Extraction: Yes - ANESTHESIA Hx Anesthesia: Yes Hx Anesthesia Reactions: No Hx Malignant Hyperthermia: No Meds Allergies/Adverse Reactions: Allergies Allergy/AdvReac Type Severity Reaction Status Date / Time No Known Allergies Allergy Verified 09/06/14 07:53 - Medications Medications: Current Medications Alprazolam (Xanax) 0.5 mg PO BID PRN PRN Reason: Anxiety Last Admin: 02/03/19 21:40 Dose: 0.5 mg Donepezil HCl (Aricept) 10 mg PO DAILY [facility] Last Admin: 02/04/19 08:53 Dose: 10 mg Enoxaparin Sodium (Lovenox) 40 mg SC DAILY [facility]; Protocol Last Admin: 02/04/19 06:04 Dose: 40 mg Home Med (Desmopressin [Ddavp]) 0.1 mg PO Q12 [facility] Last Admin: 02/04/19 08:53 Dose: 0.1 mg Hydromorphone HCl (Dilaudid) 1 mg IVP Q4 PRN PRN Reason: Pain, severe (8-10) Last Admin: 02/04/19 00:27 Dose: 1 mg Oxycodone/Acetaminophen (Percocet 5/325 Mg Tab) 1 tab PO Q4 PRN PRN Reason: Pain, moderate (4-7) Stop: 02/06/19 01:01 Last Admin: 02/04/19 08:57 Dose: 1 tab Physical Exam - Constitutional Appears: Non-toxic, No Acute Distress - Back Exam Additional comments: limited ROM, mild to moderate TTP over thoracic spine. negative SLR - Neurological Exam Additional comments: sensation grossly intact, DP flex 5/5 bilaterally Results - Vital Signs Recent Vital Signs: Last Vital Signs Temp 98.1 F 02/04/19 07:48 Pulse 78 02/04/19 07:48 Resp 18 02/04/19 07:48 BP 163/75 H 02/04/19 07:48 Pulse Ox 95 02/04/19 07:48 - Labs Result Diagrams: 02/04/19 04:40 02/04/19 04:40 Labs: Laboratory Results - last 24 hr 02/03/19 02/03/19 02/03/19 15:18 15:18 15:18 WBC 7.5 RBC 4.44 Hgb 13.6 Hct 39.6 MCV 89.2 MCH 30.7 MCHC 34.4 RDW 13.3 Plt Count 135 MPV Neut % (Auto) Lymph % (Auto) [place] % (Auto) Eos % (Auto) Baso % (Auto) Neut # (Auto) Lymph # (Auto) [place] # (Auto) Eos # (Auto) Baso # (Auto) Neutrophils % (Manual) Lymphocytes % (Manual) Reactive Lymphs % Monocytes % (Manual) Platelet Estimate RBC Morphology Sodium 129 L Potassium 4.0 Chloride 95 L Carbon Dioxide 24 Anion Gap 14 BUN 13 Creatinine 0.6 L Est GFR ( Amer) > 60 Est GFR (Non-Af Amer) > 60 Random Glucose 126 H Serum Osmolality 266 L Calcium 9.0 Total Bilirubin AST ALT Alkaline Phosphatase Total Protein Albumin Globulin Albumin/Globulin Ratio 02/04/19 02/04/19 04:40 04:40 WBC 8.3 RBC 4.23 L Hgb 13.0 Hct 37.6 MCV 89.0 MCH 30.8 MCHC 34.6 RDW 13.3 Plt Count 127 L MPV 7.6 Neut % (Auto) 82.0 H Lymph % (Auto) 7.3 L [place] % (Auto) 10.5 H Eos % (Auto) 0.1 Baso % (Auto) 0.1 Neut # (Auto) 6.9 Lymph # (Auto) 0.6 L [place] # (Auto) 0.9 H Eos # (Auto) 0.0 Baso # (Auto) 0.0 Neutrophils % (Manual) 82 H Lymphocytes % (Manual) 10 L Reactive Lymphs % 2 H Monocytes % (Manual) 6 Platelet Estimate Slightly decreased L RBC Morphology Normal Sodium 129 L Potassium 3.8 Chloride 93 L Carbon Dioxide 25 Anion Gap 15 BUN 14 Creatinine 0.6 L Est GFR ( Amer) > 60 Est GFR (Non-Af Amer) > 60 Random Glucose 122 H Serum Osmolality Calcium 8.7 Total Bilirubin 1.5 H AST 38 ALT 35 Alkaline Phosphatase 126 Total Protein 6.8 Albumin 3.8 Globulin 3.1 Albumin/Globulin Ratio 1.2 Assessment & Plan - Assessment and Plan (Free Text) Assessment: 83yM with acute on chronic back pain with T12 fx. Plan: 1. will follow up on surgery recs 2. PT 3. Continue current rx for pain. Pt may continue having percocet 1 tab for moderate pain q8h,and dilaudid for breakthrough pain 4. Care as per primary team
[2019-02-04 11:28] LABS: SQUAMOUS EPITHIAL < 1 /hpf (0-5); URINE BACTERIA RARE (<OCC); URINE BILIRUBIN NEGATIVE (NEGATIVE); URINE BLOOD MODERATE (NEGATIVE); URINE CLARITY SLIGHTY-CLOUDY (Clear); URINE COLOR AMBER (YELLOW); URINE GLUCOSE (UA) NEG (NEGATIVE); URINE LEUKOCYTE ESTERASE NEG Leu/uL (Negative); URINE PROTEIN 30 mg/dL (NEGATIVE)
[2019-02-04] MEDS: Sodium Chloride 0.9% 1,000 ML IV SCH (11:30)
[2019-02-04] MEDS: Pantoprazole 40 mg EC Tab PO SCH (17:56)
--- NOTE | 2019-02-04 18:22 | CP.PCM.PN ---
Subjective - Date & Time of Evaluation Date of Evaluation: 02/04/19 Time of Evaluation: 10:00 - Subjective Subjective: patient seen and examined at bedside. Interim events noted No complaints offered at this time, a bit confused this am denies cp/sob/fever/chills. available diagnostic data reviewed Review of Systems All systems: reviewed and no additional remarkable complaints except mentioned above Objective Vital Signs Stable - Constitutional Appears: Non-toxic, No Acute Distress Head Exam: NORMAL INSPECTION Eye Exam: Normal appearance Respiratory Exam: NORMAL BREATHING PATTERN Cardiovascular Exam: +S1, +S2 GI & Abdominal Exam: Soft Neurological Exam: Alert, Awake Psychiatric exam: Normal Affect, Normal Mood Skin Exam: Normal Color, Warm Assessment and Plan monitor vitals monitor labs Cont meds Cont tx consultants appreciated input awaiting TLSO brace Pain management requested rest of plan as ordered Objective - Vital Signs/Intake and Output Vital Signs (last 24 hours): Temp Pulse Resp BP Pulse Ox 98.6 F 75 18 144/73 97 02/04/19 15:49 02/04/19 15:49 02/04/19 15:49 02/04/19 15:49 02/04/19 15:49 - Medications Medications: Current Medications Alprazolam (Xanax) 0.5 mg PO BID PRN PRN Reason: Anxiety Last Admin: 02/03/19 21:40 Dose: 0.5 mg Docusate Sodium (Colace) 100 mg PO BID [facility] Last Admin: 02/04/19 17:56 Dose: 100 mg Donepezil HCl (Aricept) 10 mg PO DAILY [facility] Last Admin: 02/04/19 08:53 Dose: 10 mg Enoxaparin Sodium (Lovenox) 40 mg SC DAILY [facility]; Protocol Last Admin: 02/04/19 06:04 Dose: 40 mg Home Med (Desmopressin [Ddavp]) 0.1 mg PO Q12 [facility] Last Admin: 02/04/19 08:53 Dose: 0.1 mg Hydromorphone HCl (Dilaudid) 1 mg IVP Q4 PRN PRN Reason: Pain, severe (8-10) Last Admin: 02/04/19 13:54 Dose: 1 mg Sodium Chloride (Sodium Chloride 0.9%) 1,000 mls @ 75 mls/hr IV .[id number] [facility] Stop: 02/05/19 11:25 Last Admin: 02/04/19 11:30 Dose: 75 mls/hr Lactulose (Enulose) 10 gm PO DAILY PRN PRN Reason: Constipation Oxycodone/Acetaminophen (Percocet 5/325 Mg Tab) 1 tab PO Q4 PRN PRN Reason: Pain, moderate (4-7) Stop: 02/06/19 01:01 Last Admin: 02/04/19 08:57 Dose: 1 tab Pantoprazole Sodium (Protonix Ec Tab) 40 mg PO DAILY [facility] Last Admin: 02/04/19 17:56 Dose: 40 mg - Labs Labs: 02/04/19 04:40 02/04/19 04:40 Assessment and Plan (1) T12 vertebral fracture Status: Acute
[2019-02-05] MEDS: Sodium Chloride 0.9% 1,000 ML IV SCH (00:34)
[2019-02-05] MEDS: HYDROmorphone 0.5 mg/0.5 ml ISec IVP PRN ×3 (00:34→22:31)
--- NOTE | 2019-02-05 01:41 | CP.PCM.HP ---
History of Present Illness - History of Present Illness History of Present Illness: CC: Back pain S/P fall. HPI: 83 y/o Male pt with a PMH of chronic back pain presented to the ED S/P fall. As per patient, he lost his balance opening his car door, and as a result, fell to the ground. No LOC was reported, and the pt denies hitting his head. Imaging was done; T12 fx was revealed. The pt is on morphine and Endocet at home. Neurosurgery was consulted. PMH: Anemia, Back Problems, Diabetes Insipidus, HTN, Chronic back pain. PSH: None. Social History: Non-smoker. Allergies: NKDA. Subjective Review of Systems: reviewed and no additional remarkable complaints except chronic back pain. Objective Vital Signs Stable. Appears: Uncomfortable, No Acute Distress. Head Exam: NORMAL INSPECTION, normocephalic. Eye Exam: Normal appearance, PERRLA, EOMI. Respiratory Exam: NORMAL BREATHING PATTERN, breath sounds clear to auscultation. Cardiovascular Exam: +S1, +S2. RRR. GI & Abdominal Exam: Soft, non-tender, non-distended. Musculoskeletal Exam: Painful ROM in the lower back, 4/5 strength to BLE. Neurological Exam: Alert, Awake, Oriented x3. Psychiatric exam: Normal Affect, Normal Mood. Skin Exam: Pallor, Warm, Dry. Assessment/Impression/Plan: 1.) T12 fracture, Intractable Back Pain, Falls -T12 fracture noted on imaging. -Neurosurgery consult appreciated input. -Dilaudid and percocet for pain PRN; consider pain mgmt consult. -When cleared by neurosurgery, pt to start PT/OT. Present on Admission - Present on Admission Any Indicators Present on Admission: No Past Patient History - Infectious Disease Hx of Infectious Diseases: None - Tetanus Immunizations Tetanus Immunization: Unknown - Past Medical History & Family History Past Medical History?: Yes Past Family History: Reviewed and not pertinent - Past Social History Alcohol: None Drugs: Denies - CARDIAC Hx Hypertension: Yes - PULMONARY Hx Respiratory Disorders: No - NEUROLOGICAL Hx Neurological Disorder: No - HEENT Hx HEENT Problems: Yes Hx Cataracts: Yes (bilateral) - RENAL Hx Chronic Kidney Disease: No - ENDOCRINE/METABOLIC Hx Endocrine Disorders: Yes Hx Diabetes Insipidus: Yes - HEMATOLOGICAL/ONCOLOGICAL Hx Anemia: Yes Hx Human Immunodeficiency Virus (HIV): No - INTEGUMENTARY Hx Dermatological Problems: No - MUSCULOSKELETAL/RHEUMATOLOGICAL Hx Musculoskeletal Disorders: Yes Hx Back Pain: Yes Hx Falls: Yes Hx Herniated Disk: Yes - GASTROINTESTINAL Hx Gastrointestinal Disorders: Yes Hx Ulcer: Yes - GENITOURINARY/GYNECOLOGICAL Hx Genitourinary Disorders: No - PSYCHIATRIC Hx Psychophysiologic Disorder: Yes Hx Anxiety: Yes Hx Substance Use: No - SURGICAL HISTORY Hx Surgeries: Yes Hx Cataract Extraction: Yes - ANESTHESIA Hx Anesthesia: Yes Hx Anesthesia Reactions: No Hx Malignant Hyperthermia: No Meds Allergies/Adverse Reactions: Allergies Allergy/AdvReac Type Severity Reaction Status Date / Time No Known Allergies Allergy Verified 09/06/14 07:53 Results - Vital Signs Recent Vital Signs: Last Vital Signs Temp 99.5 F 02/04/19 19:30 Pulse 66 02/04/19 21:00 Resp 16 02/04/19 19:30 BP 107/61 02/04/19 19:30 Pulse Ox 91 L 02/04/19 19:30 - Labs Result Diagrams: 02/04/19 04:40 02/04/19 04:40 Labs: Laboratory Results - last 24 hr 02/04/19 02/04/19 02/04/19 04:40 04:40 11:16 WBC 8.3 RBC 4.23 L Hgb 13.0 Hct 37.6 MCV 89.0 MCH 30.8 MCHC 34.6 RDW 13.3 Plt Count 127 L MPV 7.6 Neut % (Auto) 82.0 H Lymph % (Auto) 7.3 L [place] % (Auto) 10.5 H Eos % (Auto) 0.1 Baso % (Auto) 0.1 Neut # (Auto) 6.9 Lymph # (Auto) 0.6 L [place] # (Auto) 0.9 H Eos # (Auto) 0.0 Baso # (Auto) 0.0 Neutrophils % (Manual) 82 H Lymphocytes % (Manual) 10 L Reactive Lymphs % 2 H Monocytes % (Manual) 6 Platelet Estimate Slightly decreased L RBC Morphology Normal Sodium 129 L Potassium 3.8 Chloride 93 L Carbon Dioxide 25 Anion Gap 15 BUN 14 Creatinine 0.6 L Est GFR ( Amer) > 60 Est GFR (Non-Af Amer) > 60 Random Glucose 122 H Calcium 8.7 Total Bilirubin 1.5 H AST 38 ALT 35 Alkaline Phosphatase 126 Total Protein 6.8 Albumin 3.8 Globulin 3.1 Albumin/Globulin Ratio 1.2 Urine Color Lisy Urine Clarity Slighty-cloudy Urine pH 6.0 Ur Specific Dexter 1.025 Urine Protein 30 Urine Glucose (UA) Neg Urine Ketones 20 Urine Blood Moderate Urine Nitrate Negative Urine Bilirubin Negative Urine Urobilinogen 4.0 Ur Leukocyte Esterase Neg Urine RBC (Auto) 29 H Urine Microscopic WBC 3 Ur Squamous Epith Cells < 1 Urine Bacteria Rare Urine Osmolality 02/04/19 11:16 WBC RBC Hgb Hct MCV MCH MCHC RDW Plt Count MPV Neut % (Auto) Lymph % (Auto) [place] % (Auto) Eos % (Auto) Baso % (Auto) Neut # (Auto) Lymph # (Auto) [place] # (Auto) Eos # (Auto) Baso # (Auto) Neutrophils % (Manual) Lymphocytes % (Manual) Reactive Lymphs % Monocytes % (Manual) Platelet Estimate RBC Morphology Sodium Potassium Chloride Carbon Dioxide Anion Gap BUN Creatinine Est GFR ( Amer) Est GFR (Non-Af Amer) Random Glucose Calcium Total Bilirubin AST ALT Alkaline Phosphatase Total Protein Albumin Globulin Albumin/Globulin Ratio Urine Color Urine Clarity Urine pH Ur Specific Dex[place] Urine Protein Urine Glucose (UA) Urine Ketones Urine Blood Urine Nitrate Urine Bilirubin Urine Urobilinogen Ur Leukocyte Esterase Urine RBC (Auto) Urine Microscopic WBC Ur Squamous Epith Cells Urine Bacteria Urine Osmolality 758 Assessment & Plan (1) Intractable back pain Status: Acute (2) Multiple falls Status: Acute (3) T12 vertebral fracture Status: Acute
[2019-02-05] MEDS: Oxycodone/Acetaminophen 5/325 mg Tab PO PRN ×3 (06:08→17:08)
[2019-02-05] MEDS: Pantoprazole 40 mg EC Tab PO SCH (09:56)
[2019-02-05] MEDS: Enoxaparin 40 mg Syringe SC SCH (09:56)
[2019-02-05 10:09] LABS: BLOOD UREA NITROGEN 12 mg/dl (9-20); GFR NON-AFRICAN AMERICAN > 60
[2019-02-05] MEDS ORDERED: Lactulose 10 gm/15 ml Syrup PO PRN (10:30)
[2019-02-05] MEDS: Bacitracin 500 Units/gm Oint Foilpak UD TOP SCH (13:03)
[2019-02-05] MEDS: DESMOPRESSIN 0.1 MG PO SCH ×2 (17:24→20:18)
[2019-02-06] MEDS: Oxycodone/Acetaminophen 5/325 mg Tab PO PRN (00:47)
[2019-02-06 08:12] VITALS: RESP 18
[2019-02-06] MEDS: DESMOPRESSIN 0.1 MG PO SCH (09:50)
[2019-02-06] MEDS: Enoxaparin 40 mg Syringe SC SCH (10:57)
[2019-02-06] MEDS: Pantoprazole 40 mg EC Tab PO SCH (10:57)
[2019-02-06] MEDS: Bacitracin 500 Units/gm Oint Foilpak UD TOP SCH (10:57)
[2019-02-06 12:19] VITALS: BP 155/73; PULSE 95; TEMP 98.1; O2SAT 95
[2019-02-06] MEDS ORDERED: Oxycodone/Acetaminophen 5/325 mg Tab PO PRN (12:46)
== END 2019-02-06 13:35 | DRG 552 ==
LOC: H.ER 17:21 → H.ERHOLD 21:49 → H.TEL 23:06 → OBSVTOIN 02-03 13:46
PROVIDERS: ADMIT Family Medicine; ATTEND Family Medicine
DX: S22.088A Other fracture of T11-T12 vertebra, initial encounter for closed fracture (principal); E23.2 Diabetes insipidus; G89.29 Other chronic pain; I10 Essential (primary) hypertension; M45.4 Ankylosing spondylitis of thoracic region; M46.97 Unspecified inflammatory spondylopathy, lumbosacral region; M48.061 Spinal stenosis, lumbar region without neurogenic claudication; M50.30 Other cervical disc degeneration, unspecified cervical region; M51.36 Other intervertebral disc degeneration, lumbar region; R29.6 Repeated falls; W01.0XXA Fall on same level from slipping, tripping and stumbling without subsequent striking against object, initial encounter; Y92.89 Other specified places as the place of occurrence of the external cause; D64.9 Anemia, unspecified; F41.9 Anxiety disorder, unspecified; H26.9 Unspecified cataract; Z79.899 Other long term (current) drug therapy; R27.9 Unspecified lack of coordination